=== PATIENT | male | born 1990 | race Caucasian/White ===

== ENCOUNTER → 2019-04-23 17:41 | Outpatient (BNVA) | payer OTHER, SELFPAY | PROVIDERS: Family Provider Family Medicine; PCP Family Medicine; Visit Provider Nurse Practitioner Family | DX: J02.9 Acute pharyngitis, unspecified (principal); J20.8 Acute bronchitis due to other specified organisms; B96.89 Other specified bacterial agents as the cause of diseases classified elsewhere | CPT/HCPCS: 87804 ==

== ENCOUNTER → 2019-11-03 17:04 | Outpatient (BNVA) | payer OTHER, SELFPAY | PROVIDERS: Family Provider Family Medicine; PCP Family Medicine; Visit Provider Nurse Practitioner | DX: J20.8 Acute bronchitis due to other specified organisms (principal); R10.9 Unspecified abdominal pain; R42 Dizziness and giddiness; B96.89 Other specified bacterial agents as the cause of diseases classified elsewhere | CPT/HCPCS: 81000; 87635 ==

== ENCOUNTER 2020-11-11 14:45 | Emergency (ER) | payer OTHER, SELFPAY ==
--- NOTE | 2020-11-11 14:47 | XR_ITS ---
WS: [id number] PORTABLE CHEST HISTORY: cough, SOB COMPARISON: None available. Lungs are clear and well expanded. No pleural effusion or pneumothorax. Cardiac size: Normal. Mediastinum/Aorta: Normal mediastinum. No osseous abnormality seen. XR/XR chest 1V portable [id number] IMPRESSION: Unremarkable portable chest.
[2020-11-11 14:56] VITALS: BP 130/76; PULSE 101; RESP 18; TEMP 36.8; O2SAT 98; BMI 25.8
[2020-11-11 16:03] LABS: SARS Covid-2 Antigen Negative (Negative)
--- NOTE | 2020-11-11 16:06 | ED_ITS ---
HPI - COVID General: Chief Complaint: COVID symptoms Stated Complaint: SOB, Cough, Sore Throat, Low Grade Fever Time Seen by Provider: 11/11/20 14:52 Source: patient Mode of arrival: ambulatory Limitations: no limitations Triage information: Has fever, cough or shortness of breath . No known COVID + exposure last 14 days History of Present Illness: HPI Narrative: Patient is a 29-year-old male who presents to ED today with complaints of COVID-like symptoms. Patient states his son recently tested positive for COVID. Patient states a few days ago he had reported fevers but these have subsided. Since then he has had a sore throat, nonproductive cough, and noticed some shortness of breath with activity. MD complaint: reported COVID exposure and has COVID symptoms Prior covid testing: no COVID 19 common symptoms: positive fever(s), non-productive cough, dyspnea and throat pain; negative productive cough, fatigue, body aches, headache(s), nasal congestion, nausea, vomiting or diarrhea COVID 19 other sytmptoms: negative chest pain Onset (ago): day(s) Severity: mild Treatment prior to arrival: none COVID Results: SARS-CoV-2 Antigen (Rapid) Negative (Negative) 11/11/20 15:05 11/11/20 SARS-CoV-2 RNA (RT-PCR) Not detected (NOT DETECTED) 11/03/19 18:55 11/03/19 Review of Systems Const: Reports: fever(s); Denies: body aches, change in appetite, fatigue or malaise ENMT: Reports: throat pain; Denies: nasal discharge or nasal congestion Card: Denies: chest pain, palpitations, irregular heart rhythm, edema, lightheadedness, syncope or pre-syncope Resp: Reports: dyspnea and non-productive cough; Denies: productive cough, wheezing, pain on inspiration, hemoptysis or chest congestion GI: Denies: abdominal pain, nausea, vomiting or diarrhea Musc: Denies: neck pain, back pain, extremity pain or joint pain Skin/Breast: Denies: rash Neuro: Denies: headache(s) PFS ED PFSH: Social History Smoking and tobacco status: current every day smoker Alcohol intake: current Physical Exam Const: COMMON NORMALS: no acute distress, average body habitus, patient oriented x3, no limitations, healthy appearing, alert and well nourished GENERAL APPEARANCE: cooperative ORIENTATION/CONSCIOUSNESS: Yes awake, Yes oriented to person, Yes oriented to place and Yes oriented to time HENMT: COMMON NORMALS: normocephalic and atraumatic HEAD & SCALP: normocephalic and atraumatic Resp: COMMON NORMALS: normal respiratory effort and clear to auscultation bilaterally AUSCULTATION: clear to auscultation bilaterally Cardio: COMMON NORMALS: regular rate and regular rhythm RATE: regular rate RHYTHM: regular rhythm Neuro: COMMON NORMALS: patient oriented x3 SENSORIUM/ORIENTATION: Yes alert, Yes oriented to person, Yes oriented to place and Yes oriented to time Skin: COMMON NORMALS: no rashes or lesions noted GENERAL SKIN EXAM: no rashes or lesions noted Course Vital Signs: Vital signs: Vital Signs Temperature 98.2 F 11/11/20 14:56 Pulse Rate 101 H 11/11/20 14:56 Respiratory Rate 18 11/11/20 14:56 Blood Pressure 130/76 11/11/20 14:56 Pulse Oximetry 98 11/11/20 14:56 MDM - COVID MDM Narrative: Medical decision making narrative: Rapid COVID ordered from triage negative. Will perform PCR testing. Recommend quarantine based on positive exposure. Lab Data: Labs: Lab Results 11/11/20 Range/Units 15:05 SARS-CoV-2 Ag (Rap id) Negative (Negative) Imaging Data: CXR: Radiologist's impression: [address] [address] XRay Report Signed Patient: Duane Velasco Unit #: [id number] : 1990 Age/Sex: 29 / M ADM Date: 11/11/20 Loc: ER Room/Bed: Attending Dr: Ordering Provider/Ordering MD: Lakisha Wallace Date of Service: 11/11/20 Procedure(s): XR chest 1V portable [id number] Accession Number(s): [id number] Report Number: [id number] WS: [id number] PORTABLE CHEST HISTORY: cough, SOB COMPARISON: None available. Lungs are clear and well expanded. No pleural effusion or pneumothorax. Cardiac size: Normal. Mediastinum/Aorta: Normal mediastinum. No osseous abnormality seen. XR/XR chest 1V portable [id number] IMPRESSION: Unremarkable portable chest. Dictated By: Libertad Keita DO Signed By: Libertad Keita DO Signed Date/Time: 11/11/201517 DD/ 17 COVID Results: SARS-CoV-2 Antigen (Rapid) Negative (Negative) 11/11/20 15:05 11/11/20 SARS-CoV-2 RNA (RT-PCR) Not detected (NOT DETECTED) 11/03/19 18:55 11/03/19 Discharge Plan Discharge Patient Disposition: Home Clinical Impression: Suspected severe acute respiratory syndrome coronavirus 2 (SARS-CoV-2) infection Condition: Stable Prescriptions: No Action meclizine 25 mg tablet 25 mg PO BID PRN (Reason: dizziness) Qty: 30 RF: 0 azithromycin 250 mg tablet See Rx Instructions PO .COMPLEX Qty: 6 RF: 0 Discharge Orders: Discharge ED (Routine); Ordered 11/11/20 Ordered By: Lakisha Wallace Activity Restrictions/Additional Instructions: As we discussed your rapid COVID was negative. Your send out test should be resulted over the next 48 hours. Based on positive exposure I would recommend continue quarantining until these results return. Coding Level of Care Code ED [employer] for [employer] Carrillo
[2020-11-11 16:22] VITALS: O2SAT 97
[2020-11-11 16:25] VITALS: PULSE 96; RESP 17; O2SAT 97
[2020-11-12 14:18] LABS: Coronavirus Test Green County Not Detected
--- NOTE | 2020-11-13 15:15 | PC.NURSE ---
pt notified of negative covid results
== END 2020-11-11 16:27 | disposition home or self-care (01) ==
PROVIDERS: Emergency Provider Physician Assistant
DX: Z20.822 Contact with and (suspected) exposure to COVID-19 (principal); F17.210 Nicotine dependence, cigarettes, uncomplicated
CPT/HCPCS: 71045; 87426; 87635; 99282

== ENCOUNTER → 2022-10-25 17:45 | Outpatient (BNVA) | payer OTHER, SELFPAY | PROVIDERS: Visit Provider Emergency Medicine | DX: R05.9 Cough, unspecified (principal) | CPT/HCPCS: 87426 ==